=== PATIENT | female | born 1960 | race Caucasian/White ===

== ENCOUNTER 2017-11-20 00:28 | Emergency (ER) | payer OTHER ==
[~2017-11-20] VITALS: Ht 154.9 cm; Wt 52.0 kg
[2017-11-20] MEDS ORDERED: KETOROLAC 30MG/ML VIAL IV STA (01:33)
[2017-11-20] MEDS ORDERED: SODIUM CHLORIDE 0.9% 1,000 ML IV ONE (01:33)
[2017-11-20] MEDS ORDERED: ACETAMINOPHEN 325MG TABLET PO STA (01:33)
[2017-11-20 01:51] LABS: BASOPHILS % 0.7 % (0.0-2.0); HEMATOCRIT. 39.9 % (36.0-48.0); HEMOGLOBIN. 13.8 g/dL (12.0-16.0); MEAN CORPUSCULAR VOLUME 92.6 fL (81.0-99.0); MEAN PLATELET VOLUME 8.4 fl (7.4-10.4); MONOCYTES % 14.9 % (2.0-8.0); NEUTROPHILS % 56.4 % (40.0-76.0); PLATELET 134 x1000/uL (130-400); RED BLOOD CELL COUNT 4.31 mill/uL (4.2-5.4); RED CELL DISTRIBUTION WIDTH 12.9 % (11.6-14.6)
[2017-11-20 01:56] LABS: CHLORIDE 103 mEq/L (98-107)
[2017-11-20 01:58] LABS: INR 1.1; PROTHROMBIN TIME 11.3 sec (9.4-11.6)
[2017-11-20 02:04] LABS: CARBON DIOXIDE 30 mEq/L (21-32)
[2017-11-20 05:05] VITALS: BP 102/55
== END 2017-11-20 05:07 | disposition home or self-care (01) ==
LOC: ER 00:28
DX: B34.9 Viral infection, unspecified (principal); Z88.0 Allergy status to penicillin
CPT/HCPCS: 36415; 71010; 80053; 85025; 85610; 87804; 93005; 96361; 96374; 99285; J1885; J7030; Z7610